=== PATIENT | female | born 1995 | race Caucasian/White ===

== ENCOUNTER 2020-09-10 19:26 | Emergency (ER) | payer OTHER ==
[~2020-09-10 19:26] MED LIST: DICLOFENAC SODI75 MG PO; METRONIDAZOLE500 MG PO
== END 2020-09-10 22:46 | disposition home or self-care (01) ==
LOC: FER 19:26
DX: M79.651 Pain in right thigh (principal)
CPT/HCPCS: 93971

== ENCOUNTER 2021-09-15 13:31 | Emergency (ER) | payer OTHER ==
[2021-09-15] MEDS ORDERED: MEDROL 4MG DOSEP4 MG PO (19:37)
[2021-09-15] MEDS ORDERED: NORCO 5-325 TA1 EACH PO (19:37)
== END 2021-09-15 19:47 | disposition home or self-care (01) ==
LOC: FER 13:31
DX: M54.41 Lumbago with sciatica, right side (principal)
CPT/HCPCS: 72131; 72192; J1100